=== PATIENT | male | born 1995 | race Caucasian/White ===

== ENCOUNTER 2020-02-10 16:34 | Emergency (ER) | payer BC ==
[2020-02-10] MEDS ORDERED: Sodium Chloride 0.9% 10 ML Syringe FLUSH PRN (16:40)
[2020-02-10] MEDS ORDERED: Sodium Chloride 0.9% 10 ML SDV IV PRN (16:40)
[2020-02-10] MEDS ORDERED: Sodium Chloride 0.9% 2.5 ML Syringe FLUSH PRN ×2 (16:40)
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
--- NOTE | 2020-02-10 17:10 | CT ---
Head CT Technique: Multiple axial sections through the brain were obtained. Intravenous contrast was not utilized. Comparison: No prior intracranial imaging is available. Findings: Ventricles along with basal cisterns and sulci over the convexities are within normal limits for the patient's age. No abnormal parenchymal densities are seen. No evidence of intracranial hemorrhage or mass effect. Bone window settings were reviewed. Visualized mastoid sinuses and visualized paranasal sinuses show nothing acute. No acute calvarial finding is seen. Impression: 1. Nothing acute is appreciated on noncontrast head CT exam. Diagnostic code #1 Study was dictated in MDT
--- NOTE | 2020-02-10 17:10 | CR ---
Chest: AP view of the chest was obtained. Comparison: No previous chest x-ray. Heart size and mediastinum are normal. Lungs are clear with no acute parenchymal change. Bony structures are grossly intact. Impression: 1. Nothing acute is seen on frontal chest x-ray. Diagnostic code #1 Study was dictated in MDT
[2020-02-10 17:31] LABS: BLOOD UREA NITROGEN,BUN 22 mg/dL (7.0-18.0); CARBON DIOXIDE,CO2 21.4 mmol/L (21.0-32.0); CHLORIDE,CL 102 mmol/L (98-107); GLUCOSE RANDOM 99 mg/dL (74-106); POTASSIUM,K 3.9 mmol/L (3.5-5.1); SODIUM,NA 141 mmol/L (136-148)
[2020-02-10 17:33] VITALS: BP 144/96; PULSE 78
== END 2020-02-10 18:35 | disposition home or self-care (01) ==
LOC: MW.ED 16:34
DX: H53.8 Other visual disturbances (principal)
CPT/HCPCS: 36415; 70450; 70450-26; 71045; 71045-26; 80053; 84443; 84484; 85025; 85610; 85730; 93005; 99285-25

== ENCOUNTER 2020-03-19 19:47 | Emergency (ER) | payer BC ==
[2020-03-19] MEDS ORDERED: Cephalexin 500 MG Cap PO ONE (20:12)
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
--- NOTE | 2020-03-19 20:59 | CT ---
INDICATION: Injury the left zygoma inferior orbital wall TECHNIQUE: CT maxillofacial without contrast. COMPARISON: None FINDINGS: Facial bones: No fractures or bone lesions. Specifically the nasal bones, temporomandibular joints, maxilla and mandible appear intact. Orbits and globes: Unremarkable. Globes are intact. No sign of intraorbital hemorrhage or emphysema. Sinuses: No acute or significant findings. Soft tissues: Slightly soft tissue edema in left infraorbital region.. IMPRESSION: No facial bone fractures. Dictated by Philippe Joyce MD @ 03/19/2020 8:58:55 PM Please note that all CT scans at this facility use dose modulation, iterative reconstruction, and/or weight-based dosing when appropriate to reduce radiation dose to as low as reasonably achievable. Dictated by: Philippe Joyce MD @ 03/19/2020 20:59:06 (Electronically Signed)
[2020-03-19 23:41] VITALS: BP 137/94; PULSE 88
== END 2020-03-19 21:21 | disposition home or self-care (01) ==
LOC: MW.ED 19:47
DX: S00.12XA Contusion of left eyelid and periocular area, initial encounter (principal); T81.30XA Disruption of wound, unspecified, initial encounter; L08.89 Other specified local infections of the skin and subcutaneous tissue; F17.210 Nicotine dependence, cigarettes, uncomplicated; Z98.890 Other specified postprocedural states; V29.9XXA Motorcycle rider (driver) (passenger) injured in unspecified traffic accident, initial encounter
CPT/HCPCS: 70486; 87070; 99284; A9270; 99282

== ENCOUNTER 2020-04-12 06:01 | Emergency (ER) | payer BC ==
--- NOTE | 2020-04-12 06:19 | EDM.PDOC ---
ED HPI GENERAL MEDICAL PROBLEM - General Stated Complaint: SEIZURES Time Seen by Provider: 04/12/20 06:06 Source of Information: Reports: Significant Other History Limitations: Reports: Altered Mental Status - History of Present Illness INITIAL COMMENTS - FREE TEXT/NARRATIVE: 24-year-old male with history of TBI, subarachnoid hemorrhage, subdural hematoma, alcohol intoxication, concussion was brought in by his girlfriend by private vehicle actively seizing in the parking lot. Per his girlfriend, they got in an argument earlier in the evening, he threatened suicide during the argument. He came back to the house 30 minutes later and he went to sleep. She woke up at 0445 this morning and he was not in bed next to her. She went looking for him and found him somnulent, slouching in the car. Her girlfriend he was slurring his speech. He claims he took some muscle relaxers. Then he had an episode of grand mal tonic-clonic seizure activity lasting for about 1 minute, allowed by post ictal phase. He had a second episode of tonic-clonic seizure activity about 20 minutes after, this time girlfriend witnessed that he was foaming at the mouth and his eyes rolled back, all of by postictal phase and apneic respirations. She then drove him to the ER, where he had a third episode of tonic-clonic seizure activity in the parking lot. His girlfriend said he recently lost his job and has been depressed and has been pressing suicidal ideation. His last alcohol binge was 6 days ago and he was having the shakes afterwards and was complaining of a headache for 2 days. ROS secondary to altered mental status and seizure Past medical history: No additional pertinent history Past Surgical history: No additional pertinent history Social history: No additional pertinent history Family history: No additional pertinent history PHYSICAL EXAM General: somnulent, agonal respirations HEENT: dry mucous membrane Neck: supple, no meningismus, no Kernig or Brudzinski Cardiac: S1S2 tachycardic Respiratory: coarse breath sound bilaterally Abdomen: Soft, nontender, no rebound or guarding, nondistended, no pulsatile mass. Back: nontender Musculoskeletal: NVI distally, no deformity Neuro: No focal deficits, no clonus, GCS<8 Onset: Today - Related Data Allergies Allergy/AdvReac Type Severity Reaction Status Date / Time No Known Allergies Allergy Verified 03/19/20 19:59 Home Meds: Home Meds cephALEXin [Cephalexin] 500 mg PO BID #20 capsule 03/19/20 [Rx] Past Medical History - Past Health History Medical/Surgical History: Denies Medical/Surgical History HEENT History: Reports: None Cardiovascular History: Reports: Arrhythmia Respiratory History: Reports: None Gastrointestinal History: Reports: None Genitourinary History: Reports: None Musculoskeletal History: Reports: None Neurological History: Reports: Other (See Below) Other Neuro History: subdural hematoma 04/26/19 Psychiatric History: Reports: None Endocrine/Metabolic History: Reports: None Hematologic History: Reports: None Immunologic History: Reports: None Oncologic (Cancer) History: Reports: None Dermatologic History: Reports: None - Infectious Disease History Infectious Disease History: Reports: None - Past Surgical History Head Surgeries/Procedures: Reports: None Musculoskeletal Surgical History: Reports: Other (See Below) Other Musculoskeletal Surgeries/Procedures:: jaw surgery. right hand surgery Social & Family History - Family History Family Medical History: Noncontributory - Caffeine Use Caffeine Use: Reports: Coffee, Energy Drinks, Soda - Living Situation & Occupation Living situation: Reports: with Family ED ROS GENERAL - Review of Systems Review Of Systems: Unable To Obtain Reason Not Obtained: AMS, actively seizing - Physical Exam Exam: See Below Exam Limited By: Altered Mental Status (see dictation) ED PROCEDURES - Additional/Other Procedure(s) Other (Free Text) Procedure(s): RSI / INTUBATION: Indication: Respiratory failure. Oral airway was completed prior to intubation. The patient was placed in a flat position. Continuous cardiac monitoring was performed. Crash cart was in the room as well as respiratory therapist to help with airway management. RSI was achieved using Etomidate 20mg and succinylcholine 100mg. The patient was easily ventilated using an ambu bag. A MAC 4 BLADE was used and inserted into the oropharynx at which time there was a Grade 1 view of the vocal cords. A 7.5-bulgarian ET was inserted and visualized going through the vocal cords. The stylette was removed. Colorimetric change was visualized on the CO2 meter. Breath sounds were heard in both lung juarez equally. Good chest rise with ventilation along with misting in the ET tube was seen. The endotracheal tube was placed at 23 cm, measured at the lip. Portable chest x-ray was obtained to confirm tube placement. There were no complications. Oxygenation post intubation was noted to be 100%. Time spent: 10 minutes EKG INTERPRETATION EKG Interpretation Comments: 100 Bpm, NSR, first-degree AV block, normal QRS interval, no STEMI. EKG and rhythm strip interpreted by me at 0640 Course - Vital Signs Last Recorded V/S: Last Vital Signs Temp 98 F 04/12/20 06:05 Pulse 102 H 04/12/20 06:05 Resp 16 04/12/20 06:05 BP 180/121 H 04/12/20 06:05 Pulse Ox 88 L 04/12/20 06:05 - Orders/Labs/Meds Orders: Active Orders 24 hr Category Date Time Status Cardiac Monitoring [RC] . DIRECTED Care 04/12/20 06:29 Ordered EKG Documentation Completion [RC] STAT Care 04/12/20 06:30 Ordered Bernal Catheter Insertion [Insert Urinary Catheter] [OM. Care 04/12/20 07:00 Ordered PC] Q24H Gastrointestinal Tube Mgmt [RC] ASDIRECTED Care 04/12/20 07:23 Active Insert Bernal Catheter [Insert Urinary Catheter] [OM.PC] Care 04/12/20 07:30 Ordered Q24H Pulse Oximetry [RC] ASDIRECTED Care 04/12/20 06:29 Ordered RASS Sedation Scale [RC] ASDIRECTED Care 04/12/20 06:33 Ordered Urinary Catheter Assessment [RC] ASDIRECTED Care 04/12/20 06:53 Ordered Urinary Catheter Assessment [RC] ASDIRECTED Care 04/12/20 07:22 Active CORONAVIRUS COVID-19 PCR PHL Stat Lab 04/12/20 07:05 Ordered CULTURE BLOOD [BC] Stat Lab 04/12/20 06:31 Ordered CULTURE BLOOD [BC] Stat Lab 04/12/20 06:31 Ordered Propofol Drip @ 5 MCG/KG/MIN(100ml) Med 04/12/20 06:45 Ordered propofoL [Diprivan 100 ML] 100 ml IV TITRATE Sodium Chloride 0.9% [Saline Flush] [facility] 04/12/20 06:29 Ordered 10 ml FLUSH ASDIRECTED PRN Sodium Chloride 0.9% [Saline Flush] [facility] 04/12/20 06:29 Ordered 2.5 ml FLUSH ASDIRECTED PRN Vancomycin 1 gm [facility] 04/12/20 06:46 Ordered Sodium Chloride 0.9% [Normal Saline (AdvBag)] 250 ml IV ONETIME Blood Culture x2 Reflex Set [OM.PC] Stat Ot 04/12/20 06:30 Ordered Desired Level of Sedation (RASS) [AST] Click to Edit [facility] 04/12/20 06:33 Ordered Nasogastric Orogastric Tube Insertion [OM.PC] Stat Ot 04/12/20 07:22 Ordered Saline Lock Insert [OM.PC] Stat [facility] 04/12/20 06:29 Ordered Medication Orders Propofol (Diprivan 100 Ml) 100 mls @ 2.409 mls/hr IV TITRATE NOEL; Protocol Vancomycin HCl 1 gm/ Sodium (Chloride) 250 mls @ 166 mls/hr IV ONETIME ONE Stop: 04/12/20 08:16 Last Admin: 04/12/20 06:51 Dose: 166 mls/hr Documented by: MICHAEL Sodium Chloride (Saline Flush) 10 ml FLUSH ASDIRECTED PRN PRN Reason: Keep Vein Open Sodium Chloride (Saline Flush) 2.5 ml FLUSH ASDIRECTED PRN PRN Reason: Keep Vein Open Labs: Laboratory Tests 04/12/20 04/12/20 04/12/20 Range/Units 06:05 06:05 06:05 WBC 15.79 H (4.0-11.0) K/uL RBC 5.92 H (4.50-5.90) M/uL Hgb 18.6 H (13.0-17.0) g/dL Hct 55.8 H (38.0-50.0) % MCV 94.3 (80.0-98.0) fL MCH 31.4 (27.0-32.0) pg MCHC 33.3 (31.0-37.0) g/dL RDW Std Deviation 45.5 (28.0-62.0) fl RDW Coeff of Jahaira 13 (11.0-15.0) % Plt Count 272 (150-400) K/uL MPV 10.30 (7.40-12.00) fL Neut % (Auto) 72.3 (48.0-80.0) % Lymph % (Auto) 20.0 (16.0-40.0) % Alpine % (Auto) 6.6 (0.0-15.0) % Eos % (Auto) 0.8 (0.0-7.0) % Baso % (Auto) 0.3 (0.0-1.5) % Neut # (Auto) 11.4 H (1.4-5.7) K/uL Lymph # (Auto) 3.2 H (0.6-2.4) K/uL Alpine # (Auto) 1.1 H (0.0-0.8) K/uL Eos # (Auto) 0.1 (0.0-0.7) K/uL Baso # (Auto) 0.1 (0.0-0.1) K/uL Nucleated RBC % 0.0 /100WBC Nucleated RBCs # 0 K/uL INR ABG Carboxyhemoglobin (0-15) % Lactate 3.8 H* (0.20-2.00) mmol/L Sodium 143 (136-148) mmol/L Potassium 4.4 (3.5-5.1) mmol/L Chloride 104 (98-107) mmol/L Carbon Dioxide 20.9 L (21.0-32.0) mmol/L BUN 10 (7.0-18.0) mg/dL Creatinine 1.5 H (0.8-1.3) mg/dL Est Cr Clr Drug Dosing TNP Estimated GFR (MDRD) 58.0 ml/min Glucose 133 H (74-106) mg/dL POC Glucose (60-110) mg/dL Calcium 9.4 (8.5-10.1) mg/dL Magnesium 2.1 (1.8-2.4) mg/dL Total Bilirubin 0.4 (0.2-1.0) mg/dL AST 24 (15-37) IU/L ALT 43 (14-63) IU/L Alkaline Phosphatase 106 (46-116) U/L Creatine Kinase 184 (26-308) U/L Total Protein 8.8 H (6.4-8.2) g/dL Albumin 5.1 H (3.4-5.0) g/dL Globulin 3.7 (2.6-4.0) g/dL Albumin/Globulin Ratio 1.4 (0.9-1.6) Urine Color Urine Appearance Urine pH (5.0-8.0) Ur Specific Barney (1.001-1.035) Urine Protein (NEGATIVE) mg/dL Urine Glucose (UA) (NEGATIVE) mg/dL Urine Ketones (NEGATIVE) mg/dL Urine Occult Blood (NEGATIVE) Urine Nitrite (NEGATIVE) Urine Bilirubin (NEGATIVE) Urine Urobilinogen (<2.0) EU/dL Ur Leukocyte Esterase (NEGATIVE) Urine RBC (0-2/HPF) Urine WBC (0-5/HPF) Ur Epithelial Cells (NONE-FEW) Amorphous Sediment (NEGATIVE) Urine Bacteria (NEGATIVE) Urine Mucus (NONE-MOD) Urine Opiates Screen (NEGATIVE) Ur Oxycodone Screen (NEGATIVE) Urine Methadone Screen (NEGATIVE) Ur Barbiturates Screen (NEGATIVE) Ur Phencyclidine Scrn (NEGATIVE) Ur Amphetamine Screen (NEGATIVE) U Methamphetamines Scrn (NEGATIVE) U Benzodiazepines Scrn (NEGATIVE) U Cocaine Metab Screen (NEGATIVE) U Marijuana (THC) Screen (NEGATIVE) Ethyl Alcohol < 3.0 mg/dL COVID-19 (DONTE) (NEGATIVE) 04/12/20 04/12/20 04/12/20 Range/Units 06:24 06:30 06:30 WBC (4.0-11.0) K/uL RBC (4.50-5.90) M/uL Hgb (13.0-17.0) g/dL Hct (38.0-50.0) % MCV (80.0-98.0) fL MCH (27.0-32.0) pg MCHC (31.0-37.0) g/dL RDW Std Deviation (28.0-62.0) fl RDW Coeff of Jahaira (11.0-15.0) % Plt Count (150-400) K/uL MPV (7.40-12.00) fL Neut % (Auto) (48.0-80.0) % Lymph % (Auto) (16.0-40.0) % Alpine % (Auto) (0.0-15.0) % Eos % (Auto) (0.0-7.0) % Baso % (Auto) (0.0-1.5) % Neut # (Auto) (1.4-5.7) K/uL Lymph # (Auto) (0.6-2.4) K/uL Alpine # (Auto) (0.0-0.8) K/uL Eos # (Auto) (0.0-0.7) K/uL Baso # (Auto) (0.0-0.1) K/uL Nucleated RBC % /100WBC Nucleated RBCs # K/uL INR ABG Carboxyhemoglobin (0-15) % Lactate (0.20-2.00) mmol/L Sodium (136-148) mmol/L Potassium (3.5-5.1) mmol/L Chloride (98-107) mmol/L Carbon Dioxide (21.0-32.0) mmol/L BUN (7.0-18.0) mg/dL Creatinine (0.8-1.3) mg/dL Est Cr Clr Drug Dosing Estimated GFR (MDRD) ml/min Glucose (74-106) mg/dL POC Glucose 107 (60-110) mg/dL Calcium (8.5-10.1) mg/dL Magnesium (1.8-2.4) mg/dL Total Bilirubin (0.2-1.0) mg/dL AST (15-37) IU/L ALT (14-63) IU/L Alkaline Phosphatase (46-116) U/L Creatine Kinase (26-308) U/L Total Protein (6.4-8.2) g/dL Albumin (3.4-5.0) g/dL Globulin (2.6-4.0) g/dL Albumin/Globulin Ratio (0.9-1.6) Urine Color YELLOW Urine Appearance CLEAR Urine pH 6.0 (5.0-8.0) Ur Specific Barney >= 1.030 (1.001-1.035) Urine Protein NEGATIVE (NEGATIVE) mg/dL Urine Glucose (UA) NEGATIVE (NEGATIVE) mg/dL Urine Ketones NEGATIVE (NEGATIVE) mg/dL Urine Occult Blood SMALL H (NEGATIVE) Urine Nitrite NEGATIVE (NEGATIVE) Urine Bilirubin NEGATIVE (NEGATIVE) Urine Urobilinogen 0.2 (<2.0) EU/dL Ur Leukocyte Esterase NEGATIVE (NEGATIVE) Urine RBC 0-2 (0-2/HPF) Urine WBC 0-1 (0-5/HPF) Ur Epithelial Cells RARE (NONE-FEW) Amorphous Sediment LIGHT (NEGATIVE) Urine Bacteria FEW (NEGATIVE) Urine Mucus LIGHT (NONE-MOD) Urine Opiates Screen NEGATIVE (NEGATIVE) Ur Oxycodone Screen NEGATIVE (NEGATIVE) Urine Methadone Screen NEGATIVE (NEGATIVE) Ur Barbiturates Screen NEGATIVE (NEGATIVE) Ur Phencyclidine Scrn NEGATIVE (NEGATIVE) Ur Amphetamine Screen NEGATIVE (NEGATIVE) U Methamphetamines Scrn NEGATIVE (NEGATIVE) U Benzodiazepines Scrn NEGATIVE (NEGATIVE) U Cocaine Metab Screen NEGATIVE (NEGATIVE) U Marijuana (THC) Screen NEGATIVE (NEGATIVE) Ethyl Alcohol mg/dL COVID-19 (DONTE) (NEGATIVE) 04/12/20 04/12/20 04/12/20 Range/Units 06:35 06:48 06:48 WBC (4.0-11.0) K/uL RBC (4.50-5.90) M/uL Hgb (13.0-17.0) g/dL Hct (38.0-50.0) % MCV (80.0-98.0) fL MCH (27.0-32.0) pg MCHC (31.0-37.0) g/dL RDW Std Deviation (28.0-62.0) fl RDW Coeff of Jahaira (11.0-15.0) % Plt Count (150-400) K/uL MPV (7.40-12.00) fL Neut % (Auto) (48.0-80.0) % Lymph % (Auto) (16.0-40.0) % Alpine % (Auto) (0.0-15.0) % Eos % (Auto) (0.0-7.0) % Baso % (Auto) (0.0-1.5) % Neut # (Auto) (1.4-5.7) K/uL Lymph # (Auto) (0.6-2.4) K/uL Alpine # (Auto) (0.0-0.8) K/uL Eos # (Auto) (0.0-0.7) K/uL Baso # (Auto) (0.0-0.1) K/uL Nucleated RBC % /100WBC Nucleated RBCs # K/uL INR 1.05 ABG Carboxyhemoglobin 6.2 (0-15) % Lactate (0.20-2.00) mmol/L Sodium (136-148) mmol/L Potassium (3.5-5.1) mmol/L Chloride (98-107) mmol/L Carbon Dioxide (21.0-32.0) mmol/L BUN (7.0-18.0) mg/dL Creatinine (0.8-1.3) mg/dL Est Cr Clr Drug Dosing Estimated GFR (MDRD) ml/min Glucose (74-106) mg/dL POC Glucose (60-110) mg/dL Calcium (8.5-10.1) mg/dL Magnesium (1.8-2.4) mg/dL Total Bilirubin (0.2-1.0) mg/dL AST (15-37) IU/L ALT (14-63) IU/L Alkaline Phosphatase (46-116) U/L Creatine Kinase (26-308) U/L Total Protein (6.4-8.2) g/dL Albumin (3.4-5.0) g/dL Globulin (2.6-4.0) g/dL Albumin/Globulin Ratio (0.9-1.6) Urine Color Urine Appearance Urine pH (5.0-8.0) Ur Specific Barney (1.001-1.035) Urine Protein (NEGATIVE) mg/dL Urine Glucose (UA) (NEGATIVE) mg/dL Urine Ketones (NEGATIVE) mg/dL Urine Occult Blood (NEGATIVE) Urine Nitrite (NEGATIVE) Urine Bilirubin (NEGATIVE) Urine Urobilinogen (<2.0) EU/dL Ur Leukocyte Esterase (NEGATIVE) Urine RBC (0-2/HPF) Urine WBC (0-5/HPF) Ur Epithelial Cells (NONE-FEW) Amorphous Sediment (NEGATIVE) Urine Bacteria (NEGATIVE) Urine Mucus (NONE-MOD) Urine Opiates Screen (NEGATIVE) Ur Oxycodone Screen (NEGATIVE) Urine Methadone Screen (NEGATIVE) Ur Barbiturates Screen (NEGATIVE) Ur Phencyclidine Scrn (NEGATIVE) Ur Amphetamine Screen (NEGATIVE) U Methamphetamines Scrn (NEGATIVE) U Benzodiazepines Scrn (NEGATIVE) U Cocaine Metab Screen (NEGATIVE) U Marijuana (THC) Screen (NEGATIVE) Ethyl Alcohol mg/dL COVID-19 (DONTE) NEGATIVE (NEGATIVE) Meds: Medications Generic Name Dose Route Start Last Admin Trade Name Freq PRN Reason Stop Dose Admin Propofol 100 mls @ 2.409 mls/hr 04/12/20 06:45 Diprivan 100 Ml IV TITRATE NOEL Protocol 5 MCG/KG/MIN Vancomycin HCl 1 gm/ Sodium 250 mls @ 166 mls/hr 04/12/20 06:46 04/12/20 06:51 Chloride IV 04/12/20 08:16 166 mls/hr ONETIME ONE Administration Sodium Chloride 10 ml 04/12/20 06:29 Saline Flush FLUSH ASDIRECTED PRN Keep Vein Open Sodium Chloride 2.5 ml 04/12/20 06:29 Saline Flush FLUSH ASDIRECTED PRN Keep Vein Open Discontinued Medications Generic Name Dose Route Start Last Admin Trade Name Freq PRN Reason Stop Dose Admin Lactated Ringer's 1,000 mls @ 999 mls/hr 04/12/20 06:29 04/12/20 06:38 Ringers, Lactated IV 04/12/20 07:29 999 mls/hr .BOLUS ONE Administration Propofol Confirm 04/12/20 06:32 04/12/20 06:39 Diprivan 50 Ml Administered 04/12/20 06:33 2.4 mls/hr Dose Administration 50 mls @ as directed .ROUTE .STK-MED ONE Levetiracetam 2,000 mg/ 120 mls @ 460 mls/hr 04/12/20 06:33 Dextrose/Water IV 04/12/20 06:48 STAT STA Multivitamins/Minerals 10 ml/ 1,011.2 mls @ 999 mls/hr 04/12/20 06:34 Thiamine HCl 100 mg/ Folic IV 04/12/20 07:34 Acid 1 mg/ Sodium Chloride ONETIME ONE Piperacillin Sod/Tazobactam 50 mls @ 100 mls/hr 04/12/20 06:46 Sod 3.375 gm/ Sodium Chloride IV 04/12/20 07:15 ONETIME ONE Sodium Chloride Confirm 04/12/20 07:31 Normal Saline Administered 04/12/20 07:32 Dose 50 mls @ as directed .ROUTE .STK-MED ONE - Re-Assessments/Exams Free Text/Narrative Re-Assessment/Exam: 04/12/20 06:35 Patient expressed agonal respirations with bradypnea despite oral airway and nonrebreather mask, will intubate for airway protection. See procedure note. Ordered IV banana bag and propofol drip. 04/12/20 06:41 Reviewed post intubation chest x-ray, ET tube in good place, NG tube in good place, noted right upper lobe consolidation on my wet read, will place patient on antibiotics for aspiration pneumonia. 04/12/20 06:44 Ordered IV vancomycin and Zosyn. 2 gm of IV Keppra. 04/12/20 06:50 Patient will require transfer to outside facility for the need of higher level of care not available at this facility, and the need for assessment consultant services unavailable at this facility. Any emergency conditions have been stabilized to the ability of the ED prior to the transfer. Case was discussed with transfer center and transfer arranged to outside facility/higher level of care. [facility] is on diversion at this time. 04/12/20 06:[address] head. 04/12/20 07:18 [facility] on diversion, Stollkaren Rodriguez also on diversion. Will try [facility]. 04/12/20 07:25 EMS brought in another family member from the same house, EMS found an unlabelled bottle, after a pill search, found it to be baclofen. Apparently family has a h/o manufacturing drugs. 04/12/20 07:[address] Suad Velazco at [facility], will accept patient transfer. Departure - Departure Time of Disposition: 07:43 Disposition: DC/Tfer to Other 70 Condition: Critical Clinical Impression: Status epilepticus, Suicidal ideation, Aspiration pneumonia, Seizure, Baclofen overdose - Discharge Information *PRESCRIPTION DRUG MONITORING PROGRAM REVIEWED*: Not Applicable *COPY OF PRESCRIPTION DRUG MONITORING REPORT IN PATIENT RISA: Not Applicable Critical Care Note - Critical Care Note Total Time (mins): 48 Comments: Critical Care: The high probability of sudden, clinically significant deterioration in the patient's condition required the highest level of my preparedness to intervene urgently. The services I provided to this patient were to treat and/or prevent clinically significant deterioration. Services included the following: chart data review, reviewing nursing notes and/or old charts, documentation time, assessment consultant collaboration regarding findings and treatment options, medication orders and management, direct patient care, vital sign assessments and ordering, interpreting and reviewing diagnostic studies/lab tests. Aggregate critical care time includes only time during which I was engaged in work directly related to the patient's care, as described above, whether at the bedside or elsewhere in the Emergency Department. It did not include time spent performing other reported procedures or the services of residents, students, nurses or physician assistants. Frequent interventions and/or frequent repeat evaluations were required as well as counseling and coordination of care regarding prognosis, treatments, and discussions with patient, staff and consultants. Critical Care (excluding other procedures): 48 minutes Sepsis Event Note (ED) - Focused Exam Vital Signs: Vital Signs Temp Pulse Resp BP Pulse Ox 04/12/20 06:05 98 F 102 H 16 180/121 H 88 L - My Orders Last 24 Hours: My Active Orders 04/12/20 06:29 Cardiac Monitoring [RC] . DIRECTED Pulse Oximetry [RC] ASDIRECTED Sodium Chloride 0.9% [Saline Flush] 10 ml FLUSH ASDIRECTED PRN Sodium Chloride 0.9% [Saline Flush] 2.5 ml FLUSH ASDIRECTED PRN Saline Lock Insert [OM.PC] Stat 04/12/20 06:30 EKG Documentation Completion [RC] STAT Blood Culture x2 Reflex Set [OM.PC] Stat 04/12/20 06:31 CULTURE BLOOD [BC] Stat CULTURE BLOOD [BC] Stat 04/12/20 06:33 RASS Sedation Scale [RC] ASDIRECTED Desired Level of Sedation (RASS) [AST] Click to Edit 04/12/20 06:45 Propofol Drip @ 5 MCG/KG/MIN(100ml) propofoL [Diprivan 100 ML] 100 ml IV TITRATE 04/12/20 06:46 Vancomycin 1 gm Sodium Chloride 0.9% [Normal Saline (AdvBag)] 250 ml IV ONE TIME 04/12/20 06:53 Urinary Catheter Assessment [RC] ASDIRECTED 04/12/20 07:00 Bernal Catheter Insertion [Insert Urinary Catheter] [OM.PC] Q24H 04/12/20 07:05 CORONAVIRUS COVID-19 PCR PHL Stat 04/12/20 07:22 Urinary Catheter Assessment [RC] ASDIRECTED Nasogastric Orogastric Tube Insertion [OM.PC] Stat 04/12/20 07:23 Gastrointestinal Tube Mgmt [RC] ASDIRECTED 04/12/20 07:30 Insert Bernal Catheter [Insert Urinary Catheter] [OM.PC] Q24H - Assessment/Plan Last 24 Hours: My Active Orders 04/12/20 06:29 Cardiac Monitoring [RC] . DIRECTED Pulse Oximetry [RC] ASDIRECTED Sodium Chloride 0.9% [Saline Flush] 10 ml FLUSH ASDIRECTED PRN Sodium Chloride 0.9% [Saline Flush] 2.5 ml FLUSH ASDIRECTED PRN Saline Lock Insert [OM.PC] Stat 04/12/20 06:30 EKG Documentation Completion [RC] STAT Blood Culture x2 Reflex Set [OM.PC] Stat 04/12/20 06:31 CULTURE BLOOD [BC] Stat CULTURE BLOOD [BC] Stat 04/12/20 06:33 RASS Sedation Scale [RC] ASDIRECTED Desired Level of Sedation (RASS) [AST] Click to Edit 04/12/20 06:45 Propofol Drip @ 5 MCG/KG/MIN(100ml) propofoL [Diprivan 100 ML] 100 ml IV TITRATE 04/12/20 06:46 Vancomycin 1 gm Sodium Chloride 0.9% [Normal Saline (AdvBag)] 250 ml IV ONETIME 04/12/20 06:53 Urinary Catheter Assessment [RC] ASDIRECTED 04/12/20 07:00 Bernal Catheter Insertion [Insert Urinary Catheter] [OM.PC] Q24H 04/12/20 07:05 CORONAVIRUS COVID-19 PCR PHL Stat 04/12/20 07:22 Urinary Catheter Assessment [RC] ASDIRECTED Nasogastric Orogastric Tube Insertion [OM.PC] Stat 04/12/20 07:23 Gastrointestinal Tube Mgmt [RC] ASDIRECTED 04/12/20 07:30 Insert Bernal Catheter [Insert Urinary Catheter] [OM.PC] Q24H
[2020-04-12] MEDS ORDERED: Etomidate 2 MG/ML 20 ML SDV IVPUSH ONE ×2 (06:25→09:00)
[2020-04-12] MEDS ORDERED: Succinylcholine 200 MG/10 ML MDV IV ONE (06:25)
[2020-04-12] MEDS ORDERED: Sodium Chloride 0.9% 10 ML Syringe FLUSH PRN (06:29)
[2020-04-12] MEDS ORDERED: Lactated Ringers 1,000 ML IV ONE (06:29)
[2020-04-12] MEDS ORDERED: Sodium Chloride 0.9% 2.5 ML Syringe FLUSH PRN (06:29)
[2020-04-12] MEDS ORDERED: propofoL 50 ML ONE (06:32)
[2020-04-12] MEDS ORDERED: MVI, Adult with Vitamin K 10 ML, Thiamine 100 MG, Folic Acid 1 MG in Sodium Chloride 0.... IV ONE ×4 (06:34)
[2020-04-12] MEDS ORDERED: propofoL 100 ML IV SCH ×2 (06:45→07:45)
[2020-04-12] MEDS ORDERED: Piperacillin/Tazobactam 3.375 GM in Sodium Chloride 0.9% 50 ML IV ONE (06:46)
[2020-04-12 06:52] LABS: BLOOD UREA NITROGEN,BUN 10 mg/dL (7.0-18.0); CARBON DIOXIDE,CO2 20.9 mmol/L (21.0-32.0); CHLORIDE,CL 104 mmol/L (98-107); GLUCOSE RANDOM 133 mg/dL (74-106); POTASSIUM,K 4.4 mmol/L (3.5-5.1); SODIUM,NA 143 mmol/L (136-148)
--- NOTE | 2020-04-12 07:00 | CR ---
INDICATION: Status post intubation COMPARISON: February 10, 2020 TECHNIQUE: Synovial portable chest radiograph FINDINGS: TUBES AND LINES: Endotracheal tube ending about 6 centimeters from the jhon. Nasogastric tube ending in the left upper quadrant HEART AND MEDIASTINUM: The heart size is normal. The mediastinal contour appears normal for patient age. LUNGS AND PLEURAL SPACES: Airspace consolidation in the right upper lobe could represent atelectasis, aspiration or pneumonia.No pneumothorax OSSEOUS STRUCTURES: Age-appropriate appearance. No acute focal finding. IMPRESSION: Endotracheal tube ending about 6 centimeters above the jhon. Nasogastric tube in the left upper quadrant. Right upper lobe airspace process could represent atelectasis, aspiration or pneumonia. Dictated by Tl Alvares MD @ Apr 12 2020 6:58AM Signed by Dr. Tl Alvares @ Apr 12 2020 7:00AM
--- NOTE | 2020-04-12 07:26 | CT ---
INDICATION: Altered mental status. Status post intubation. COMPARISON: February 10, 2020 TECHNIQUE: CT examination of the head was performed as axial sections without intravenous contrast. Images were obtained from the vertex of the skull through the skull base. Please note that all CT scans at this facility use dose modulation, iterative reconstruction, and/or weight-based dosing when appropriate to reduce radiation dose to as low as reasonably achievable. FINDINGS: The brain shows no sign of mass lesion, mass effect, hemorrhage, or edema. The ventricles and sulci are normal in appearance for the patient`s age. The visualized portions of the orbits are normal in appearance. The osseous structures are normal in their appearance with no sign of abnormality in the skull base or calvarium. Incidental chronic appearing paranasal sinus mucosal inflammatory disease IMPRESSION: Normal unenhanced head CT. Incidental chronic appearing paranasal sinus mucosal inflammatory disease. Please note that all CT scans at this facility use dose modulation, iterative reconstruction, and/or weight-based dosing when appropriate to reduce radiation dose to as low as reasonably achievable. Dictated by Tl Alvares MD @ Apr 12 2020 7:22AM Signed by Dr. Tl Alvares @ Apr 12 2020 7:24AM
[2020-04-12] MEDS ORDERED: Sodium Chloride 0.9% 50 ML ONE (07:31)
[2020-04-12] MEDS ORDERED: Activated Charcoal/Water Susp 50 GM/240 ML Tube PO ONE (07:40)
[2020-04-12] MEDS ORDERED: Activated Charcoal/Sorbitol Susp 50 GM/240 ML Tube PO ONE (08:00)
[2020-04-12] MEDS ORDERED: fentaNYL 100 MCG/2 ML SDV ONE (08:17)
[2020-04-12] MEDS ORDERED: fentaNYL 50 MCG/ML SDV IVPUSH ONE (08:19)
[2020-04-12] MEDS ORDERED: Succinylcholine 200 MG/10 ML MDV ONE (09:00)
[2020-04-12] MEDS ORDERED: Rocuronium 100 MG/10 ML MDV ONE (09:00)
[2020-04-12 09:08] VITALS: BP 145/96; PULSE 112
== END 2020-04-12 08:36 | disposition other institution (70) ==
LOC: MW.ED 06:01
DX: G40.901 Epilepsy, unspecified, not intractable, with status epilepticus (principal); T42.8X2A Poisoning by antiparkinsonism drugs and other central muscle-tone depressants, intentional self-harm, initial encounter; J69.0 Pneumonitis due to inhalation of food and vomit; Z20.828 Contact with and (suspected) exposure to other viral communicable diseases
CPT/HCPCS: 31500; 36415; 43752; 51702; 70450; 71045; 80053; 80305; 80307; 81001; 82375; 82550; 82962; 83605; 83735; 85025; 85610; 87040; 87635; 93005; 94002; 96361; 96365; 96367; 96368; 96375; 99291; J0330; J1953; J2543; J2704; J3010; J3370; J3411; J3490; J7030; J7050; J7060; J7120; U0002